=== PATIENT | male | born 1980 | race Caucasian/White ===

== ENCOUNTER 2019-11-15 17:18 | Emergency (ER) | payer BC, SELFPAY ==
--- NOTE | ~2019-11-15 | XR_ITS ---
EXAMINATION: XR chest 2V DATE: 11/15/2019 17:50 INDICATION: Cough TECHNIQUE: PA and lateral views of the chest are obtained. COMPARISON: 03/16/2018 FINDINGS: The lungs are free of acute opacities. There is no pleural effusion or pneumothorax. The ca rdiomediastinal silhouette is normal. The visualized bones and soft tissues are unremarkable. IMPRESSION: 1. No acute cardiopulmonary abnormality. Reviewed, dictated and finalized at location A.
[2019-11-15 17:21] VITALS: BP 139/95; PULSE 92; RESP 20; TEMP 36.4; O2SAT 100
--- NOTE | 2019-11-15 18:01 | ED.URI ---
HPI - URI/Sore Throat General Chief Complaint: Upper Respiratory Infection Stated Complaint: COUGH/CONGESTION History of Present Illness HPI Narrative: This is a 39 year old that comes in complaining of chest congestion and some sharp pain with his cough. Patient denies having any shortness of breath at this time. Patient states that he notice tightness when he cough and some mild shortness of breath when he coughs. Patient denies fever, nausea and or vomiting. Patient states that he is on antibiotic he had a extra zpak at home and he started it . Related Data Home Medications Medication Instructions Recorded Confirmed loratadine 10 mg PO DAILY 11/15/19 11/15/19 Allergies Allergy/AdvReac Type Severity Reaction Status Date / Time lovastatin Allergy Unknown Swelling Verified 11/15/19 17:33 pertussis vaccine,adsorbed Allergy Unknown Hives Verified 11/15/19 17:33 Review of Systems Review of Systems: Narrative: CONSTITUTIONAL: Denies fever, chills, or sweats. EYES: Denies visual changes, redness, or discharge. ENT: Denies rhinorrhea, congestion, sore throat, or otalgia. CARDIOVASCULAR:Denies chest pain, palpitations, or edema. RESPIRATORY: Positive cough Denies abdominal pain, nausea, vomiting, or diarrhea. GENITOURINARY: Denies dysuria or hematuria. SKIN:[Denies rash or itching. MUSCULOSKELETAL:Denies back pain, joint pain, or myalgia. NEUROLOGIC: Denies headache, numbness, or weakness. PSYCHIATRIC:Denies anxiety or depression PMFSH Past Medical History Medical History (Updated 11/15/19 @ 18:06 by Ashlie Lilly NP) Acute nasopharyngitis (common cold) Allergic rhinitis due to animal (cat) (dog) hair and dander Social History Social History Smoking status: Never smoker Second hand tobacco smoke exposure: No Alcohol intake: never Comments At time as signature, I have reviewed and agree with nursing past medical, social, surgical and family history. Please see nursing chart for further information. There is no relevant family history pertinent to the presenting complaint. Exam Narrative: Exam Narrative: GENERAL:Well-appearing, well-nourished, and in no acute distress. HEAD:Normocephalic, atraumatic. EYES: PERRLA and EOMI. ENT: Nares clear, no rhinorrhea or epistaxis. Mucous membranes moist. NECK: Supple. CHEST: Clear to auscultation. No respiratory distress. HEART: Regular rate and rhythm. No murmur heard. Normal peripheral pulses. ABDOMEN: Soft, nontender, nondistended, normal active bowel sounds. EXTREMITIES: Normal range of motion. No edema. SKIN: Warm, dry, no rash. NEURO: No focal deficits. Alert and oriented x3. Exam essentially negative except for patient's verbal complaint Course Vital Signs Vital signs: Vital Signs Temperature 97.5 F L 11/15/19 17:21 Pulse Rate 92 11/15/19 17:21 Respiratory Rate 20 11/15/19 17:21 Blood Pressure 139/95 H 11/15/19 17:21 Pulse Oximetry 100 11/15/19 17:21 Temperature 97.5 F L 11/15/19 17:21 Pulse Rate 92 11/15/19 17:21 Respiratory Rate 20 11/15/19 17:21 Blood Pressure 139/95 H 11/15/19 17:21 Pulse Oximetry 100 11/15/19 17:21 MDM - URI/Sore Throat Differential Diagnosis Differential diagnosis: Likely upper respiratory infection, otitis media, sinusitis, viral infection, bronchitis and pharyngitis Discharge Plan Discharge Clinical Impression: Viral infection Upper respiratory infection Qualifiers: URI type: unspecified viral URI Qualified Code(s): J06.9 - Acute upper respiratory infection, unspecified Patient Disposition: Home, Self-Care Condition: Stable Instructions: Antibiotic Form, Upper Respiratory Infection in Children (ED), Viral Syndrome (ED) Additional Instructions: Viral illness may last between 7-12days; antibiotic is NOT recommended at this time. Recommend antihistamine such as Benadryl at night time and Claritin/Zyrtec/Alleg
== END 2019-11-15 18:10 | disposition home or self-care (01) ==
PROVIDERS: Emergency Provider Nurse Practitioner Family; PCP Internal Medicine
DX: J06.9 Acute upper respiratory infection, unspecified (principal); I10 Essential (primary) hypertension
CPT/HCPCS: 71046; 99213; G0463

== ENCOUNTER 2020-01-14 10:41 | Emergency (ER) | payer BC, SELFPAY ==
--- NOTE | ~2020-01-14 | CT_ITS ---
EXAMINATION: CT brain wo con DATE: 01/14/2020 12:13 INDICATION: Right-sided paresis. Blurry right eye vision. TECHNIQUE: Computed tomography (CT) of the head was performed without intravenous contrast. The mA wa s adjusted according to patient size. Iterative reconstruction technique was employed. Exam dose: 68 1.00 mGy-cm total exam DLP. COMPARISON: 01/19/2010 CT brain FINDINGS: No intracranial mass lesion or hemorrhage or cerebrovascular accident is evident. No midlin e shift or mass effect. Normal ventricular size. No subdural or epidural hematoma. No orbital mass lesion. No fracture or bone destruction of the cranial vault. Included paranasal sinuses and mastoid air cell s are unremarkable. IMPRESSION: No significant abnormality Reviewed, dictated and finalized at Location [facility]. Reviewed, dictated and finalized at location A. IMPRESSION: No significant abnormality
[2020-01-14 10:53] VITALS: BP 138/76; PULSE 98; RESP 16; TEMP 37.1; O2SAT 100
[2020-01-14 10:59] VITALS: PULSE 88
--- NOTE | 2020-01-14 11:23 | ECG_ITS ---
Measurements Intervals [place] Rate: 82 P: 62 SC: 137 QRS: 12 QRSD: 90 T: 31 QT: 373 QTc: 437 Interpretive Statements SINUS RHYTHM BASELINE WANDER- AVF BORDERLINE ECG Electronically Signed On 01-14-2020 14:19:25 CDT by Jasbir De Jesus D.O.
--- NOTE | 2020-01-14 11:24 | ED.GENADULT ---
HPI - General Adult General Chief complaint: Unspecified Stated complaint: OVERHEATED 4D AGO, R EYE BLURRY Time Seen by Provider: 01/14/20 10:48 Source: patient Mode of arrival: ambulatory Limitations: no limitations History of Present Illness HPI narrative: This is a 39 year old male that presents to the ER for right sided weakness x 2 days. Reports he felt like he got overheated at work 2 days ago. Reports since he has noticed weakness, mostly on his right side. Also reports this morning he noted the vision in his right eye was blurry. Reports he will have some intermittent pressure behind the right eye as well. Denies fever, abdominal pain, nausea, vomiting, dysuria or hematuria. Related Data Allergies Allergy/AdvReac Type Severity Reaction Status Date / Time lovastatin Allergy Intermediate Swelling Verified 01/14/20 10:58 pertussis vaccine,adsorbed Allergy Intermediate Hives Verified 01/14/20 10:58 Review of Systems Review of Systems: Narrative: CONSTITUTIONAL: Denies fever EYES: Reports visual changes. Denies redness, or discharge. ENT: Denies congestion, sore throat CARDIOVASCULAR: Denies chest pain or edema. RESPIRATORY: Denies cough or dyspnea. GASTROINTESTINAL: Denies abdominal pain, nausea, vomiting GENITOURINARY: Denies dysuria or hematuria. NEUROLOGIC: Reports headache and weakness. Denies numbness All systems reviewed & are unremarkable except as noted in HPI and below PMFSH Past Medical History Medical History (Updated 01/14/20 @ 14:17 by Za Alexis PA-C) Acute nasopharyngitis (common cold) Allergic rhinitis due to animal (cat) (dog) hair and dander Social History Social History (Updated 01/14/20 @ 11:28 by Za Alexis PA-C) Smoking status: Never smoker Second hand tobacco smoke exposure: No Alcohol intake: never Substance use: never Gender identity (if verbalized by the patient): Male Exam Narrative: Exam Narrative: GENERAL: Well-appearing, well-nourished, and in no acute distress. HEAD: Normocephalic, atraumatic. EYES: PERRLA and EOMI. Eye pressure: right 20, 17 left. No abnormalities noted on funduscopic exam ENT: Nares clear, no rhinorrhea or epistaxis. Mucous membranes moist. Oropharynx without tonsillar hypertrophy exudate or other lesions. Bilateral TMs pearly aguilar non-bulging. NECK: Supple. No adenopathy or masses. CHEST: Clear to auscultation. No respiratory distress. No wheezes rales or rhonchi HEART: Regular rate and rhythm. No murmur heard. Normal peripheral pulses. ABDOMEN: Soft, nontender, nondistended, normal active bowel sounds. EXTREMITIES: Normal range of motion. No edema. Strength equal in bilateral upper and lower extremities (5/5). Normal [id number] SKIN: Warm, dry, no rash. NEURO: No focal deficits. Alert and oriented x3. Cranial nerves II through XII grossly intact PSYCH: Normal mood and affect Course Vital Signs Vital signs: Vital Signs Temperature 98.8 F 01/14/20 10:53 Pulse Rate 98 01/14/20 10:53 Respiratory Rate 16 01/14/20 10:53 Blood Pressure 138/76 01/14/20 10:53 Pulse Oximetry 100 01/14/20 10:53 Temperature 98.8 F 01/14/20 10:53 Pulse Rate 76 01/14/20 13:52 Respiratory Rate 20 01/14/20 13:52 Blood Pressure 130/72 01/14/20 13:52 Pulse Oximetry 100 01/14/20 13:52 Medical Decision Making MDM Narrative Medical decision making narrative: Patient presents to the emergency department for eye pressure and vision changes. Also was reporting some tingling in his right upper and lower extremities. Reports the symptoms have been present for the last 2 days. Patient is neurologically intact. Patient is afebrile and nontoxic-appearing. Vitals are normal. CBC and metabolic panel are normal. ESR is not elevated. CK is normal. UA is normal. CT scan of the brain is without acute findings. Vision on the right is 20/25 and 20/20 on the left. Normal eye pressures. Patient does report improvement after migraine cock
[2020-01-14 11:33] LABS: Basophils Percent Auto 0.4 % (0.2-1.2); Eosinophils Absolute Auto 0.1 K/mm3 (0-0.3); Eosinophils Percent Auto 0.8 % (0-4.4); Hematocrit 45.9 % (42.0-52.0); Hemoglobin 15.7 g/dL (14.0-18.0); Immature Granulocyte Absolute 0.01 K/mm3 (0.00-0.031); Immature Granulocyte Percent A 0.1 % (0-0.5); Lymphocytes Absolute Auto 2.11 K/mm3 (0.9-3.2); Lymphocytes Percent Auto 27.3 % (18.3-44.2); Mean Corpuscular HGB Conc 34.2 g/dl (32-36); Mean Corpuscular Hemoglobin 28.8 pg (26-34); Mean Corpuscular Volume 84.1 fl (80-100); Mean Platelet Volume 11.9 fl (7.4-10.4); Monocytes Absolute Auto 0.6 K/mm3 (0.1-0.6); Monocytes Percent Auto 8.2 % (2.6-8.5); Neutrophils Absolute Auto 4.9 K/mm3 (1.3-6.7); Neutrophils Percent Auto 63.2 % (45.5-73.1); Platelet Count Result 231 k/mm3 (150-375); Red Blood Count 5.46 M/mm3 (4.6-6.20); Red Cell Distribution Width 14.1 % (11.5-14.5); White Blood Count 7.7 K/mm3 (4.5-10.0)
[2020-01-14 11:46] LABS: Alanine Aminotransferase 39 U/L (4-50); Albumin Level 4.5 g/dL (3.5-5.1); Alkaline Phosphatase 89 U/L (38-126); Aspartate Amino Transferase 32 U/L (17-59); Bilirubin,Total 0.6 mg/dL (0.2-1.3); Blood Urea Nitrogen 10 mg/dL (9-20); Calcium 8.8 mg/dL (8.4-10.2); Carbon Dioxide 26 mmol/L (22-30); Chloride 104 mmol/L (98-107); Creatine Kinase 168 U/L (55-170); Estimated CRCL calculation 112 ml/min; Estimated Glomerular Filt Rate > 60; Glucose 105 mg/dL (75-110); Magnesium 1.9 mg/dL (1.6-2.3); Sodium 137 mmol/L (137-145)
[2020-01-14 11:50] LABS: Partial Thromboplastin Time 28.3 SECONDS (22.3-36.8); Prothrombin Time 12.8 Seconds (11.1-14.7)
[2020-01-14] MEDS: SODIUM CHLORIDE 0.9% IV 1,000 ML 999 ML IV CONT (12:01)
[2020-01-14] MEDS: METOCLOPRAMIDE HCL INJ 10 MG/2 ML VIAL IV PUSH (12:02)
[2020-01-14 12:03] LABS: Erythrocyte Sedimentation Rate 1 mm/hr (0-20)
[2020-01-14 12:29] VITALS: BP 132/83; PULSE 82; RESP 20; O2SAT 99
[2020-01-14 12:50] LABS: Add Urine Microscopic? YES; Appearance Urine Clear (Clear); Bilirubin Urine Negative (Negative); Blood Urine Negative (Negative); Color Urine Yellow (Yellow); Glucose Urine UA Negative (Negative); Ketones Urine Negative (Negative); Leukocyte Esterase Ur Negative LEU/UL (Negative); Mucus Urine Rare /lpf; Nitrate Urine Negative (Negative); Protein Urine Negative (Negative); RBC Urine 0-2 /hpf (0-2); Specific Grav Ur 1.024 (1.001-1.035); Urobilinogen Urine Negative mg/dL (<2.0); WBC Urine 0-3 /hpf
[2020-01-14 13:52] VITALS: BP 130/72; PULSE 76; RESP 20; O2SAT 100
[2020-01-14 14:26] VITALS: BP 123/70; PULSE 70; RESP 16; O2SAT 100
== END 2020-01-14 14:27 | disposition home or self-care (01) ==
PROVIDERS: Physician Assistant; Emergency Provider Emergency Medicine; PCP Internal Medicine
DX: R20.0 Anesthesia of skin (principal); H53.9 Unspecified visual disturbance; J30.81 Allergic rhinitis due to animal (cat) (dog) hair and dander; R94.31 Abnormal electrocardiogram [ECG] [EKG]
CPT/HCPCS: 36415; 70450; 80053; 81001; 82550; 83735; 85025; 85610; 85652; 85730; 93005; 96361; 96374; 96375; 99284; J0131; J1200; J2765; J7030

== ENCOUNTER 2020-02-21 22:32 | Emergency (ER) | payer BC, SELFPAY ==
--- NOTE | ~2020-02-21 | CT_ITS ---
EXAMINATION: CT abdomen pelvis wo con DATE: 02/22/2020 03:19 INDICATION: Lower abdominal pain TECHNIQUE: Computed tomography (CT) of the abdomen and pelvis was performed without intravenous contr ast. The dose-length product was 654.31 mGy-cm. Automated exposure control and iterative reconstructi on technique were employed. COMPARISON: CT dated 03/17/2013 FINDINGS: Lung bases within normal limits. Heart size normal. No significant pleural or pericardial e ffusion. The liver, spleen, pancreas, adrenal glands and kidneys are unremarkable. Gallbladder is pre sent. Nonobstructive bowel gas pattern. Normal appendix. No abnormal vascular abnormalities. No lymphadenopathy. No abnormal pelvic masses or fluid collections. No free air or free fluid. No acu te osseous abnormality. IMPRESSION: 1. No acute abdominal abnormality. Reviewed, dictated and finalized at location B.
--- NOTE | ~2020-02-21 | XR_ITS ---
EXAMINATION: XR chest 2V 02/22/2020 03:14 INDICATION: Elevated white blood cell count PROCEDURE: 2 view chest COMPARISON: 11/15/2019 FINDINGS: The lungs are clear. The cardiomediastinal silhouette is within normal limits. There are no pleural effusions. There is no pneumothorax suspected. IMPRESSION: 1: NO ACUTE CARDIOPULMONARY DISEASE. Reviewed, dictated and finalized at location B.
--- NOTE | ~2020-02-21 | CT_ITS ---
EXAMINATION: CT BRAIN W/O DATE: 02/22/2020 01:46 INDICATION: Left-sided paresthesias. TECHNIQUE: Computed tomography (CT) of the head was performed without intravenous contrast. The dose- length product was 681.00 mGy-cm. The mA was adjusted according to patient size. Iterative reconstruc tion technique was employed. COMPARISON: CT dated 01/14/2020 FINDINGS: Normal brain parenchymal volume for age. Normal aguilar-white differentiation. No acute intrac ranial hemorrhage, infarction, mass or mass effect. There are dural calcifications are on the frontal falx unchanged. No ventriculomegaly or midline shift. Midline sagittal images demonstrate a normal corpus callosum, c raniovertebral junction and sella turcica. Basilar cisterns are patent. Paranasal sinuses and mastoids are pneumatized. No depressed skull fractures. IMPRESSION: 1. No acute intracranial abnormality. Reviewed, dictated and finalized at location B.
[2020-02-21 22:37] VITALS: BP 159/76; PULSE 95; RESP 18; TEMP 36.6; O2SAT 100
[2020-02-22 00:14] VITALS: BP 153/102; PULSE 87; RESP 17; O2SAT 100
[2020-02-22 01:33] LABS: Basophils Percent Auto 0.3 % (0.2-1.2); Eosinophils Percent Auto 0.2 % (0-4.4); Hemoglobin 15.8 g/dL (14.0-18.0); Immature Granulocyte Absolute 0.05 K/mm3 (0.00-0.031); Immature Granulocyte Percent A 0.4 % (0-0.5); Lymphocytes Percent Auto 18.1 % (18.3-44.2); Mean Corpuscular HGB Conc 33.6 g/dl (32-36); Mean Corpuscular Hemoglobin 28.1 pg (26-34); Mean Corpuscular Volume 83.5 fl (80-100); Mean Platelet Volume 11.7 fl (7.4-10.4); Monocytes Percent Auto 7.4 % (2.6-8.5); Neutrophils Absolute Auto 10.2 K/mm3 (1.3-6.7); Neutrophils Percent Auto 73.6 % (45.5-73.1); Platelet Count Result 265 k/mm3 (150-375); Red Blood Count 5.63 M/mm3 (4.6-6.20); Red Cell Distribution Width 13.5 % (11.5-14.5); White Blood Count 13.8 K/mm3 (4.5-10.0)
[2020-02-22 01:41] LABS: Alanine Aminotransferase 61 U/L (4-50); Albumin Level 4.7 g/dL (3.5-5.1); Alkaline Phosphatase 95 U/L (38-126); Aspartate Amino Transferase 31 U/L (17-59); Bilirubin,Total 0.3 mg/dL (0.2-1.3); Blood Urea Nitrogen 19 mg/dL (9-20); Calcium 9.4 mg/dL (8.4-10.2); Carbon Dioxide 24 mmol/L (22-30); Chloride 103 mmol/L (98-107); Estimated Glomerular Filt Rate > 60; Glucose 97 mg/dL (75-110); Potassium 4.1 mmol/L (3.4-5.0); Sodium 136 mmol/L (137-145)
[2020-02-22 01:50] LABS: Creatine Kinase 51 U/L (55-170)
--- NOTE | 2020-02-22 01:51 | ED.GENADULT ---
HPI - General Adult General Chief complaint: Neuro Symptoms/Deficit Stated complaint: left arm numbness and pain Time Seen by Provider: 02/22/20 00:24 Source: patient Mode of arrival: ambulatory Limitations: no limitations History of Present Illness HPI narrative: This patient is a 39 year old male who presents for evaluation of multiple complaints. Patient states over 1 month ago he started having headaches . He states at that time he has some right side numbness. He was evaluated at [facility] with [facility] brain and labs. His evaluation was unremarkable. He then reports 3 weeks ago he noticed he was having intermittent pain to his left arm with movement. He also reports his left fingers will intermittently go numb at night. He has been seen by his PCP for evaluation, and he states he has been told that were going to refer him to neurologist after seeing a ENT. Patient states he saw a small red dot on his left leg so he came to ER for evaluation. Onset (ago): week(s) Related Data Home Medications Medication Instructions Recorded Confirmed azelastine 137 mcg (0.1 %) nasal 1 spray NASAL Q12H 02/14/20 spray aerosol Allergies Allergy/AdvReac Type Severity Reaction Status Date / Time lovastatin Allergy Intermediate Swelling Verified 02/21/20 22:40 pertussis vaccine,adsorbed Allergy Intermediate Hives Verified 02/21/20 22:40 Review of Systems Review of Systems: All systems reviewed & are unremarkable except as noted in HPI and below Constitutional: Constitutional: Denies chills, Reports fatigue and Denies fever(s) Eyes: Eyes: Reports change in vision ENT: Denies dysphagia and Denies epistaxis Cardiovascular: Cardiovascular: Denies chest pain and Denies radiating jaw, neck or arm pain Respiratory: Respiratory: Reports cough, Denies dyspnea and Denies wheezing Gastrointestinal: Gastrointestinal: Denies abdominal pain and Denies nausea Musculoskeletal: Musculoskeletal: Reports myalgias and Reports muscle cramps Integumentary/Breasts: Skin/Breast: Reports rash Neurologic: Reports headache(s) and Reports numbness Endocrine: Endocrine: Reports polydipsia PMFSH Past Medical History Medical History Acute nasopharyngitis (common cold) Allergic rhinitis due to animal (cat) (dog) hair and dander Social History Social History Smoking status: Never smoker Second hand tobacco smoke exposure: No Alcohol intake: never Substance use: never Gender identity (if verbalized by the patient): Male Exam Narrative: Exam Narrative: GENERAL: Well-appearing, well-nourished, and in no acute distress. HEAD: Normocephalic, atraumatic EYES: PERRLA and EOMI, conjunctiva clear without discharge NOSE: Nares clear, no rhinorrhea or epistaxis THROAT:Mucous membranes moist, Oropharynx normal without erythema, exudate, peritonsillar swelling or fluctuance NECK: Supple, without lymphadenopathy or mass RESPIRATORY: No respiratory distress, Airway patent, Respirations non-labored, Clear to auscultation without rales, rhonchi or wheeze HEART: Regular rate and rhythm. No murmur heard. Normal peripheral pulses. ABDOMEN: Soft,suprapubic, nondistended, normal active bowel sounds. No masses. No rebound or guarding, No organomegaly. EXTREMITIES: No edema, normal strength with full range of motion. SKIN: Warm, dry, normal color without rash NEURO: Alert and oriented x3. CN 2-12 grossly intact. No focal deficits. PSYCH: Normal mood and affect. Neuro: General: patient oriented x3, moves all extremities, no meningeal signs, no focal motor deficits and CN's II-XI intact bilaterally Cranial nerves: Yes Nystagmus not present, Yes Normal facial strength present and Yes facial symmetry Speech: normal speech Gait exam (Neuro): Normal gait present Motor exam (neuro): Normal motor muscle tone present throughout
[2020-02-22 02:05] LABS: D Dimer < 0.22 ug/mL (<0.48)
[2020-02-22 02:22] VITALS: BP 121/81; PULSE 80; RESP 18; O2SAT 100
[2020-02-22 04:58] VITALS: BP 140/85; PULSE 80; RESP 18; O2SAT 100
== END 2020-02-22 05:00 | disposition home or self-care (01) ==
PROVIDERS: Emergency Provider General Practice; PCP Internal Medicine
DX: R53.83 Other fatigue (principal); M79.10 Myalgia, unspecified site
CPT/HCPCS: 36415; 70450; 71046; 74176; 80053; 82550; 85025; 85380; 85610; 85730; 99284

== ENCOUNTER 2020-03-20 14:28 | Outpatient (CLI) | payer BC, SELFPAY ==
--- NOTE | ~2020-03-20 | CT_ITS ---
EXAMINATION: CTA brain carotid EXAM DATE: 03/20/2020 15:55 INDICATION: Headaches, partial vision loss in right eye. Numbness and tingling in left hand. TECHNIQUE: Noncontrast head CT. Spiral CTA of the carotid arteries was performed with intravenous i njection 100 cc of Omnipaque 350. Axial, coronal, sagittal reformatted images reviewed. Additional r eformatted images created on dedicated 3-D workstation. NASCET comparable standard used to assess th e degree of arterial stenosis. Spiral CT angiogram cerebral arteries performed with the same intrave nous injection of contrast. Source images of the brain CTA transferred to dedicated workstation for 3 -D rotational image creation. Coronal, sagittal maximum intensity pixel images also reviewed. The d ose-length product (DLP) for this examination was 1858.24 mGy-cm. The exposure was tailored accordi ng to patient size, and iterative reconstruction (ASIR) was used as additional dose reduction techniq ue. Correlation is made to head CT from 02/22/2020. FINDINGS: There is no carotid plaque or stenosis. There is no carotid or vertebral basilar arterial dissection or fibromuscular dysplasia. There are no cerebral artery aneurysms. There is symmetric cer ebral artery arborization. The sagittal, transverse and sigmoid sinuses enhance normally, no venous s inus thrombosis. Internal cerebral veins also enhance normally. There is no acute intraparenchymal hemorrhage. No evidence of intraparenchymal brain mass lesion. N o evidence of acute infarction. There is no mass effect or midline shift. There is no obstructive hyd rocephalus suspected. There are no extra-axial collections. There are no calvarial acute fractures. Dural calcification along the left anterior aspect of the falx. IMPRESSION: 1. Unremarkable CTA brain carotid examination. 2. No carotid stenosis. Reviewed, dictated and finalized at location A.
--- NOTE | ~2020-03-20 | MR_ITS ---
EXAMINATION: MR brain/brain stem wo con DATE: 03/20/2020 16:14 INDICATION: Migraine headache. TECHNIQUE: Magnetic resonance imaging (MRI) of the brain and brainstem was performed without intraven ous contrast. Sequences included sagittal and axial T1-weighted FSE, axial diffusion-weighted FS EPI, axial T2*-weighted GRE, axial T2-weighted FLAIR Propeller, and axial T2-weighted Propeller. Apparent diffusion coefficient (ADC) maps were created. COMPARISON: Head CT 03/20/2020 FINDINGS: There is no intracranial hemorrhage, acute infarction, or abnormal intracranial mass lesion . There are areas of increased T2-weighted signal intensity in the deep white matter in the parietal lobes. The ventricles are normal in size. The paranasal sinuses are clear. The orbits are normal. The mastoid air cells are normal. IMPRESSION: 1. Mild nonspecific cerebral white matter disease. The differential diagnosis includes premature manager quality improvement margarita small vessel ischemic disease (especially if the patient has cardiovascular risk factors), demyel inating disease such as multiple sclerosis, drug abuse, vasculitis, or reactive astrocytosis (gliosis ) secondary to nonspecific etiology. Reviewed, dictated and finalized at location B. IMPRESSION: 1. Mild nonspecific cerebral white matter disease. The differential diagnosis i ncludes premature chronic small vessel ischemic disease (especially if the mi ent has cardiovascular risk factors), demyelinating disease such as multiple sc lerosis, drug abuse, vasculitis, or reactive astrocytosis (gliosis) secondary t o nonspecific etiology.
== END 2020-03-20 14:29 | disposition home or self-care (01) ==
PROVIDERS: PCP Internal Medicine; Visit Provider Psychiatry & Neurology Neurology
DX: G43.909 Migraine, unspecified, not intractable, without status migrainosus (principal); R93.0 Abnormal findings on diagnostic imaging of skull and head, not elsewhere classified
CPT/HCPCS: 70496; 70498; 70551; Q9967